=== PATIENT | female | born 1970 ===

== ENCOUNTER 2018-05-17 09:15 | Emergency (ER) | payer OTHER ==
[~2018-05-17] VITALS: Ht 157.5 cm; Wt 87.5 kg
[2018-05-17] MEDS ORDERED: LISINOPRIL10 MG PO (09:34)
[2018-05-17] MEDS ORDERED: SYNTHROID175 MCG (09:34)
== END 2018-05-17 16:11 | disposition home or self-care (01) ==
LOC: ER 09:15
DX: M54.2 Cervicalgia (principal)

== ENCOUNTER 2021-12-26 20:17 | Emergency (ER) | payer OTHER ==
[~2021-12-26] VITALS: Ht 154.9 cm; Wt 102.1 kg
[~2021-12-26 20:17] MED LIST: LISINOPRIL10 MG PO; SYNTHROID175 MCG
[2021-12-26] MEDS ORDERED: NABUMETONE750 MG PO (22:42)
[2021-12-26] MEDS ORDERED: DECADRON4 MG PO (22:42)
== END 2021-12-26 22:46 | disposition home or self-care (01) ==
LOC: ER 20:17
DX: R00.2 Palpitations (principal); R42 Dizziness and giddiness

== ENCOUNTER 2022-07-14 11:36 | Outpatient (CLI) | payer OTHER ==
[~2022-07-14 11:36] MED LIST changes: +DECADRON4 MG PO; +NABUMETONE750 MG PO
== END 2022-07-14 11:45 | disposition home or self-care (01) ==
LOC: SONOGRAMA 11:36
PROVIDERS: ATTEND Pathology Anatomic Pathology & Clinical Pathology
DX: D34 Benign neoplasm of thyroid gland (principal); E04.2 Nontoxic multinodular goiter; R22.1 Localized swelling, mass and lump, neck